=== PATIENT | female | born 1995 | race Asian ===

== ENCOUNTER 2021-06-07 17:44 | Emergency (ER) | payer OTHER, SELFPAY ==
[2021-06-07 17:56] VITALS: BP 115/74; PULSE 79; RESP 18; TEMP 37.2; O2SAT 100
--- NOTE | 2021-06-07 18:13 | ED.URI ---
HPI - URI/Sore Throat General Chief Complaint: Upper Respiratory Infection Stated Complaint: Fever Time Seen by Provider: 06/07/21 18:13 Source: patient and RN notes reviewed Mode of arrival: ambulatory Limitations: no limitations History of Present Illness HPI Narrative: 25-year-old female presents with concern for fever, fatigue, headache. Reports symptoms have been present for 10 days. She reports mild sore throat, reports she noticed swollen lymph nodes last week. She has been taking Tylenol for fever. She denies nasal congestion, rhinorrhea, cough, shortness of breath, nausea, vomiting, diarrhea, abdominal pain, abnormal vaginal bleeding, vaginal pain, back pain, dysuria, frequency or urgency. MD elicited complaint: fever Related Data Home Medications Medication Instructions Recorded Confirmed etonogestrel [Nexplanon] See Rx Instructions .ROUTE .COMPLEX 06/07/21 06/07/21 Allergies Allergy/AdvReac Type Severity Reaction Status Date / Time amoxicillin Allergy Mild Hives Verified 06/07/21 18:21 Review of Systems Review of Systems: CONSTITUTIONAL: Reports malaise, fatigue. Denies chills, sweats EYES: Denies visual changes, redness, or discharge. ENT: Denies rhinorrhea, congestion, sinus pain, otalgia. Reports mild sore throat. CARDIOVASCULAR: Denies chest pain, palpitations, or edema. RESPIRATORY: Denies cough. Denies dyspnea. GASTROINTESTINAL: Denies abdominal pain, nausea, vomiting, diarrhea SKIN: Denies rash or itching. MUSCULOSKELETAL: Denies myalgia. NEUROLOGIC: Reports headache. All systems reviewed & are unremarkable except as noted in HPI and below PMFSH Comments At time of signature, agree with nursing past medical, surgical, social and family history. There is no relevant family history pertinent to the presenting complaint Exam Narrative: GENERAL: Well-appearing, well-nourished, and in no acute distress. HEAD: Normocephalic EYES: PERRLA, conjunctivae clear ENT: Nares clear. Mucous membranes moist. TM pearly jama with sharp light reflex bilaterally; no tragal tenderness. Oropharynx erythematous without lesions. Tonsils not enlarged and without exudate, no drooling, no hoarseness, no trismus, uvula midline. NECK: Supple. No lymphadenopathy CHEST: Clear to auscultation, breath sounds equal. No wheezing, rhonchi, rales, or stridor. No respiratory distress, speaks in full sentences. HEART: Regular rate and rhythm. No murmur heard. SKIN: Warm, dry, no rash. NEURO: Alert and oriented x3. PSYCH: Normal mood and affect Course Course Emergency Course: Patient is aware of diagnosis, understands and agrees to treatment plan. Anticipatory guidance given. Patient agrees to follow-up as directed and is aware of reasons to seek care at the emergency department. Portions of this record may have been created with voice recognition software Level of Care: Express Care Visit Vital Signs Vital signs: Vital Signs Temperature 99.0 F 06/07/21 17:56 Pulse Rate 79 06/07/21 17:56 Respiratory Rate 18 06/07/21 17:56 Blood Pressure 115/74 06/07/21 17:56 Pulse Oximetry 100 06/07/21 17:56 Temperature 99.0 F 06/07/21 17:56 Pulse Rate 79 06/07/21 17:56 Respiratory Rate 18 06/07/21 17:56 Blood Pressure 115/74 06/07/21 17:56 Pulse Oximetry 100 06/07/21 17:56 Reviewed. MDM - URI/Sore Throat MDM Narrative Medical decision making narrative: Differential diagnosis considered: Sepsis, Tellez virus, strep pharyngitis, allergic rhinitis, upper respiratory tract infection, sinusitis, rhinosinusitis, nasopharyngitis. viral pharyngitis, otitis media, otitis externa, pneumonia, bronchitis, viral cough syndrome, viral syndrome, and influenza. Exam findings show no acute concerns or changes; patient is non-toxic appearing and is in no distress. Patient is appropriate for outpatient treatment and follow-up. Lab Data Attestation: I reviewed the patient's lab results. Critical Care Time Critical Care T
== END 2021-06-07 18:52 | disposition home or self-care (01) ==
PROVIDERS: Emergency Provider Nurse Practitioner; PCP Hospitalist
DX: R50.9 Fever, unspecified (principal); Z20.822 Contact with and (suspected) exposure to COVID-19
CPT/HCPCS: 36416; 86308; 87081; 87426; 87804; 87880; 99203; C9803; G0463

== ENCOUNTER 2021-09-23 19:01 | Emergency (ER) | payer OTHER, SELFPAY ==
--- NOTE | 2021-09-23 19:03 | ED.URI ---
HPI - URI/Sore Throat General Chief Complaint: Upper Respiratory Infection Stated Complaint: flu like symptoms Time Seen by Provider: 09/23/21 19:03 Source: patient Mode of arrival: ambulatory Limitations: no limitations History of Present Illness HPI Narrative: Ms. Crawford is a 25-year-old female patient presenting to the clinic today with complaints of having flulike symptoms x1 day She reports her symptoms began this morning. She reports she has a fever, chills, headache, body aches, and sore throat. She denies any known exposure to anyone with COVID, flu, or strep. She reports that her is also having the same symptoms. [place]. Related Data Home Medications Medication Instructions Recorded Confirmed etonogestrel 68 mg subdermal See Rx Instructions .Route .COMPLEX 06/07/21 09/23/21 implant (Nexplanon) venlafaxine 37.5 mg 1 cap PO BID 09/23/21 09/23/21 capsule,extended release 24 hr Allergies Allergy/AdvReac Type Severity Reaction Status Date / Time amoxicillin Allergy Mild Hives Verified 09/23/21 19:09 Review of Systems Review of Systems: Pertinent positives per HPI. Patient denies any fever, chills, rash, headache, visual changes, dizziness, cough, shortness of breath, chest pain, palpitations, nausea, vomiting, diarrhea, constipation, abdominal pain, or any urinary issues. PMFSH Comments At the time of my signature, I reviewed and agree with the nursing past medical, surgical, social, and family history. There is no relevant family history pertinent to the patient complaint. Exam Narrative: General: Well-developed, well nourished, in no apparent distress Head: Normocephalic, atraumatic Eyes: Pupils equally round and reactive to light bilaterally, EOM intact, sclera and conjunctive clear, no discharge, lids normal Ears: TMs intact and clear, ear canals clear, no drainage, grossly hearing normal. Nose: Nares patent, clear nasal discharge, moderate inflammation, no sinus tenderness. Mouth: Oral pharynx without lesions or masses, good dentition, MMM. Postnasal drip Neck: Supple, trachea midline, no enlargement of anterior or posterior cervical nodes, no thyroid masses or goiter palpable. Cardio: Regular rate and rhythm, s1 and s2 normal, no murmur appreciated. Resp: Clear to auscultation bilaterally, no rhonchi, rales, wheezing or rubs Course Course Emergency Course: Portions of this record may have been created with voice recognition software. Level of Care: Express Care Visit Vital Signs Vital signs: Vital Signs Temperature 38.6 C H 09/23/21 19:14 Pulse Rate 110 H 09/23/21 19:14 Respiratory Rate 18 09/23/21 19:14 Blood Pressure 113/88 09/23/21 19:14 Pulse Oximetry 100 09/23/21 19:14 Oxygen Delivery Room Air 09/23/21 19:14 Temperature 38.6 C H 09/23/21 19:14 Pulse Rate 110 H 09/23/21 19:14 Respiratory Rate 18 09/23/21 19:14 Blood Pressure 113/88 09/23/21 19:14 Pulse Oximetry 100 09/23/21 19:14 Oxygen Delivery Room Air 09/23/21 19:14 Vital signs reviewed MDM - URI/Sore Throat MDM Narrative Medical decision making narrative: At the time of visit patient is resting comfortably on the exam table. COVID, flu, and strep testing were completed. All testing was negative in the clinic. We will send for strep culture. Explained to the patient that she may need to retest for COVID here in 2 days if symptoms persist as her viral load may not be high enough for the rapid test to detect. Patient voiced understanding. Supportive measures were discussed with the patient she voiced understanding of discharge instructions and agrees with the treatment plan. Differential Diagnosis Differential diagnosis: Likely upper respiratory infection, otitis media, sinusitis, viral infection, bronchitis, influenza, pharyngitis and other (COVID) Lab Data Labs: Influenza A Screen Negative
[2021-09-23 19:14] VITALS: BP 113/88; PULSE 110; RESP 18; TEMP 38.6; O2SAT 100
== END 2021-09-23 19:55 | disposition home or self-care (01) ==
PROVIDERS: Emergency Provider Nurse Practitioner Family; PCP Hospitalist
DX: B34.9 Viral infection, unspecified (principal); Z20.822 Contact with and (suspected) exposure to COVID-19
CPT/HCPCS: 87081; 87426; 87804; 87880; 99213; C9803; G0463